=== PATIENT | female | born 1955 | race Caucasian/White ===

== ENCOUNTER → 2016-11-04 | Outpatient (CLI) | payer OTHER ==
[~2016-11-04] MED LIST: ASPIRIN 81M81 MG/TA2 PO; CELEXA40 MG PO; EFFEXOR XR75 MG/CAP PO; FLEXERIL 1010 MG/TAB PO; GLUCOPHAGE500 MG/TAB PO; NORCO 325 MG-51 TAB PO; PLAVIX 75MG TAB75 MG PO; PREDNISONE20 MG PO; PRILOSEC 20MG20 MG PO; PROTONIX 40MG T40 MG PO; SYNTHROID0.1 MG/TAB PO; ZOFRAN ODT4 MG PO
== END ==
LOC: MC.RAD 13:28
DX: Z12.31 Encounter for screening mammogram for malignant neoplasm of breast (principal); D24.2 Benign neoplasm of left breast

== ENCOUNTER 2017-01-06 11:05 | Inpatient (IN) | payer OTHER ==
[~2017-01-06] VITALS: Ht 162.6 cm; Wt 83.7 kg
[~2017-01-06 11:05] MED LIST changes: -CELEXA40 MG PO; -GLUCOPHAGE500 MG/TAB PO; -NORCO 325 MG-51 TAB PO; -PLAVIX 75MG TAB75 MG PO; -PROTONIX 40MG T40 MG PO; -ZOFRAN ODT4 MG PO
[2017-04-04] MEDS ORDERED: PLAVIX 75MG TAB75 MG PO (12:17)
[2017-04-04] MEDS ORDERED: PROTONIX 40MG T40 MG PO (12:18)
[2017-04-04] MEDS ORDERED: GLUCOPHAGE500 MG/TAB PO (12:18)
[2017-04-04] MEDS ORDERED: CELEXA40 MG PO (12:19)
[2017-04-05] VITALS (12 sets, daily range): BP systolic 89–124; BP diastolic 54–71; PULSE 55–85; TEMP 97.9–98.6
[2017-04-06] VITALS (7 sets, daily range): BP systolic 99–143; BP diastolic 45–69; PULSE 48–73; TEMP 97.5–99.2
[2017-04-06 06:57] LABS: HEMATOCRIT 35.2 % (37.0-47.0); HEMOGLOBIN 11.4 g/dl (12.5-16.0)
[2017-04-07 05:39] VITALS: BP 131/62; PULSE 78; TEMP 99.2
[2017-04-07 06:58] LABS: HEMATOCRIT 34.6 % (37.0-47.0); HEMOGLOBIN 11.5 g/dl (12.5-16.0)
[2017-04-07 07:19] VITALS: BP 124/50; PULSE 85; TEMP 98.5
[2017-04-07 11:25] VITALS: BP 147/68; PULSE 79; TEMP 98.1
== END 2017-04-07 17:00 | disposition home or self-care (01) | DRG 470 ==
LOC: JCC 04-05 05:10
PROVIDERS: Orthopaedic Surgery
PROC: 0SRC0J9 Replacement of Right Knee Joint with Synthetic Substitute, Cemented, Open Approach (ICD-10-PCS; principal; 2017-04-05 07:30)
DX: M17.11 Unilateral primary osteoarthritis, right knee (principal); E11.9 Type 2 diabetes mellitus without complications; Z87.891 Personal history of nicotine dependence
CPT/HCPCS: A9284; C1713; C1776; J0690; J1100; J1200; J1885; J2250; J2270; J2274; J2405; J2704; J3010; J7030; J7042

== ENCOUNTER → 2017-03-20 | Outpatient (CLI) | payer OTHER ==
[~2017-03-20] MED LIST changes: +CELEXA40 MG PO; +GLUCOPHAGE500 MG/TAB PO; +NORCO 325 MG-51 TAB PO; +PLAVIX 75MG TAB75 MG PO; +PROTONIX 40MG T40 MG PO; +ZOFRAN ODT4 MG PO
== END ==
LOC: COL.LAB 14:05
DX: Z01.89 Encounter for other specified special examinations (principal)

== ENCOUNTER 2017-05-01 13:24 | Emergency (ER) | payer OTHER ==
[~2017-05-01] VITALS: Ht 162.6 cm; Wt 77.3 kg
[~2017-05-01 13:24] MED LIST changes: -NORCO 325 MG-51 TAB PO; -ZOFRAN ODT4 MG PO
[2017-05-01 13:29] VITALS: BP 132/83; TEMP 98.4
[2017-05-01] MEDS ORDERED: NORCO 325 MG-51 TAB PO (13:34)
[2017-05-01] MEDS ORDERED: ZOFRAN ODT4 MG PO (15:39)
[2017-05-01 15:54] VITALS: PULSE 97
== END 2017-05-01 15:54 | disposition home or self-care (01) ==
LOC: COL.ER 13:24
DX: K22.8 Other specified diseases of esophagus (principal); T38.3X5A Adverse effect of insulin and oral hypoglycemic [antidiabetic] drugs, initial encounter; F32.9 Major depressive disorder, single episode, unspecified; E03.9 Hypothyroidism, unspecified; E11.9 Type 2 diabetes mellitus without complications; Z79.84 Long term (current) use of oral hypoglycemic drugs; Z98.890 Other specified postprocedural states

== ENCOUNTER 2018-03-15 13:54 | Inpatient (IN) | payer BC ==
[2018-03-15] VITALS (265 sets, daily range): BP systolic 105–132; BP diastolic 58–71; PULSE 67; TEMP 97; O2SAT 84–100
[~2018-03-15] VITALS: Ht 162.6 cm; Wt 81.2 kg
[~2018-03-15 13:54] MED LIST changes: +CELEXA 20MG20 MG/TAB PO; -CELEXA40 MG PO; +NORCO 325 MG-51 TAB PO; +SYNTHROID0.088 MG/T PO; -SYNTHROID0.1 MG/TAB PO; +ZOFRAN ODT4 MG PO
[2018-03-15] MEDS ORDERED: ASPIRIN 81M81 MG/TA2 PO (14:07)
[2018-03-15 14:42] LABS: BASO % 0.3 % (0.0-2.0); EOS # 0.1 (0.0-0.7); EOS % 0.6 % (0-4.0); GRAN # 7.9 (1.4-6.5); HEMOGLOBIN 10.2 g/dl (12.5-16.0); LYMPH # 2.1 (1.2-3.4); LYMPH % 18.7 % (20.0-51.0); MEAN CELL VOLUME 86 fl (80.0-100.0); MEAN CORPUSCULAR HEMOGLOBIN 28 pg (27.0-31.0); MEAN CORPUSCULAR HGB CONC 32 g/dl (33.0-37.0); MEAN PLATELET VOLUME 11.3 fl (7.4-10.4); MONO # 0.9 (0.1-0.6); MONO % 7.7 % (1.7-9.3); PLATELET COUNT 234 K/mm3 (130-400); RED BLOOD COUNT 3.68 M/mm3 (4.10-5.30); REDCELL DISTRIBUTION WIDTH-CV 14.4 % (11.5-14.5)
[2018-03-15 14:45] LABS: HEMATOCRIT 31.6 % (37.0-47.0); INR 1.1 (0.8-3.0)
[2018-03-15 14:56] LABS: ALBUMIN 2.8 gm/dL (3.5-5.0); BILIRUBIN,TOTAL 0.2 mg/dL (0.0-1.0); CALCIUM 7.5 mg/dL (8.4-10.2); CREATININE, serum 1.01 mg/dL (0.52-1.25); POTASSIUM 3.5 mmol/L (3.4-5.0); TOTAL PROTEIN 5.1 gm/dL (6.4-8.2)
[2018-03-15 19:31] LABS: HEMOGLOBIN 9.2 g/dl (12.5-16.0)
[2018-03-15 19:32] LABS: HEMATOCRIT 28.7 % (37.0-47.0)
[2018-03-15 20:40] LABS: COLLECTION METHOD CLEAN CATCH
[2018-03-15 20:46] LABS: MUCOUS Present /lpf; PH 6 (5-8); SQUAMOUS EPITHELIAL None Seen /hpf; URINE APPEARANCE Clear; URINE BACTERIA None Seen /hpf; URINE BILIRUBIN Negative (NEGATIVE); URINE BLOOD 2+ (NEGATIVE); URINE COLOR Straw; URINE GLUCOSE Negative (NEGATIVE); URINE KETONE Negative (NEGATIVE); URINE LEUKOCYTE ESTERASE Negative (NEGATIVE); URINE NITRATE Negative (NEGATIVE); URINE PROTEIN(semi-quant) Negative (NEGATIVE); URINE RBC 0-2 /hpf; URINE UROBILINOGEN Negative (NEGATIVE)
[2018-03-15 23:18] LABS: HEMATOCRIT 24.4 % (37.0-47.0); HEMOGLOBIN 7.9 g/dl (12.5-16.0)
[2018-03-16] VITALS (231 sets, daily range): BP systolic 94–121; BP diastolic 51–76; PULSE 62–87; TEMP 97–98.8; O2SAT 84–100
[2018-03-16 03:30] LABS: BASO % 0.3 % (0.0-2.0); EOS # 0.2 (0.0-0.7); EOS % 1.9 % (0-4.0); GRAN # 6.5 (1.4-6.5); GRAN % 63.7 % (42.2-75.2); LYMPH # 2.6 (1.2-3.4); MEAN CELL VOLUME 86 fl (80.0-100.0); MEAN CORPUSCULAR HGB CONC 32 g/dl (33.0-37.0); MEAN PLATELET VOLUME 11.4 fl (7.4-10.4); MONO # 0.8 (0.1-0.6); MONO % 7.5 % (1.7-9.3); PLATELET COUNT 167 K/mm3 (130-400); RED BLOOD COUNT 2.82 M/mm3 (4.10-5.30); REDCELL DISTRIBUTION WIDTH-CV 14.6 % (11.5-14.5)
[2018-03-16 03:31] LABS: HEMATOCRIT 24.2 % (37.0-47.0); HEMOGLOBIN 7.7 g/dl (12.5-16.0); MEAN CORPUSCULAR HEMOGLOBIN 27 pg (27.0-31.0)
[2018-03-16 03:32] LABS: HEMATOCRIT 24.2 % (37.0-47.0); HEMOGLOBIN 7.7 g/dl (12.5-16.0)
[2018-03-16 03:40] LABS: CALCIUM 7.1 mg/dL (8.4-10.2); CREATININE, serum 0.76 mg/dL (0.52-1.25); POTASSIUM 3.7 mmol/L (3.4-5.0)
[2018-03-16 10:43] LABS: HEMOGLOBIN 9.3 g/dl (12.5-16.0)
[2018-03-16 14:43] LABS: HEMATOCRIT 28.1 % (37.0-47.0)
[2018-03-16 18:43] LABS: HEMATOCRIT 28.1 % (37.0-47.0)
[2018-03-17 00:02] LABS: HEMATOCRIT 25.7 % (37.0-47.0); HEMOGLOBIN 8.4 g/dl (12.5-16.0)
[2018-03-17 00:07] VITALS: BP 91/45; PULSE 74; TEMP 98.6
[2018-03-17 03:19] LABS: BASO % 0.4 % (0.0-2.0); EOS # 0.2 (0.0-0.7); EOS % 2.8 % (0-4.0); GRAN # 5.5 (1.4-6.5); GRAN % 64.7 % (42.2-75.2); LYMPH # 2.1 (1.2-3.4); LYMPH % 24.2 % (20.0-51.0); MEAN CELL VOLUME 85 fl (80.0-100.0); MEAN CORPUSCULAR HGB CONC 33 g/dl (33.0-37.0); MEAN PLATELET VOLUME 11.1 fl (7.4-10.4); MONO # 0.6 (0.1-0.6); MONO % 7.3 % (1.7-9.3); PLATELET COUNT 190 K/mm3 (130-400); RED BLOOD COUNT 3.11 M/mm3 (4.10-5.30); REDCELL DISTRIBUTION WIDTH-CV 14.6 % (11.5-14.5)
[2018-03-17 03:37] LABS: HEMATOCRIT 26.5 % (37.0-47.0); HEMOGLOBIN 8.6 g/dl (12.5-16.0); MEAN CORPUSCULAR HEMOGLOBIN 28 pg (27.0-31.0)
[2018-03-17 03:39] LABS: CALCIUM 8.2 mg/dL (8.4-10.2); CREATININE, serum 0.8 mg/dL (0.52-1.25); POTASSIUM 3.9 mmol/L (3.4-5.0)
[2018-03-17 04:21] VITALS: BP 100/49; PULSE 74; TEMP 98.6
[2018-03-17 07:32] VITALS: BP 111/53; PULSE 71; TEMP 98.4
[2018-03-17] MEDS ORDERED: FERROUS GL325 MG/TAB PO (11:31)
== END 2018-03-17 12:52 | disposition home or self-care (01) | DRG 378 ==
LOC: COL.ER 13:54 → ICU 17:38 → MEDICAL 17:38
PROVIDERS: Emergency Medicine; Internal Medicine; Internal Medicine Gastroenterology; Nurse Practitioner Family
PROC: 0DJD8ZZ Inspection of Lower Intestinal Tract, Via Natural or Artificial Opening Endoscopic (ICD-10-PCS; principal; 2018-03-15 16:30)
PROC: 0DJ08ZZ Inspection of Upper Intestinal Tract, Via Natural or Artificial Opening Endoscopic (ICD-10-PCS; 2018-03-15 16:30)
DX: K57.31 Diverticulosis of large intestine without perforation or abscess with bleeding (principal); D62 Acute posthemorrhagic anemia; E11.9 Type 2 diabetes mellitus without complications; Z87.891 Personal history of nicotine dependence
CPT/HCPCS: 99223-AI; 99233-AI; 99239; A9560; C9113; J2250; J3010; J7030; J7120

== ENCOUNTER → 2018-03-27 | Outpatient (CLI) | payer BC ==
[~2018-03-27] MED LIST changes: +FERROUS GL325 MG/TAB PO
== END ==
LOC: MC.RAD 02-13 14:40
DX: Z12.31 Encounter for screening mammogram for malignant neoplasm of breast (principal)

== ENCOUNTER → 2019-04-29 | Outpatient (CLI) | payer BC | LOC: MC.RAD 11:40 | DX: Z12.31 Encounter for screening mammogram for malignant neoplasm of breast (principal) ==

== ENCOUNTER → 2020-05-22 | Outpatient (CLI) | payer BC | LOC: MC.RAD 13:39 | DX: Z12.31 Encounter for screening mammogram for malignant neoplasm of breast (principal) ==

== ENCOUNTER → 2021-06-01 | Outpatient (CLI) | payer BC | LOC: MC.RAD 11:37 | DX: Z12.31 Encounter for screening mammogram for malignant neoplasm of breast (principal) ==

== ENCOUNTER → 2021-08-13 | Outpatient (CLI) | payer MEDICARE, OTHER | LOC: COL.RAD 08:36 | DX: K44.9 Diaphragmatic hernia without obstruction or gangrene (principal); T17.320A Food in larynx causing asphyxiation, initial encounter; K21.9 Gastro-esophageal reflux disease without esophagitis ==

== ENCOUNTER 2021-09-06 12:53 | Outpatient (RCR) | payer MEDICARE | END 2021-10-29 | disposition home or self-care (01) | LOC: WSST | DX: K22.9 Disease of esophagus, unspecified (principal) ==

== ENCOUNTER → 2021-09-14 | Outpatient (CLI) | payer MEDICARE | LOC: COL.RAD 09-09 15:30 | DX: K22.9 Disease of esophagus, unspecified (principal) ==

== ENCOUNTER → 2022-06-09 | Outpatient (CLI) | payer MEDICARE | LOC: MC.RAD 14:25 | DX: Z12.31 Encounter for screening mammogram for malignant neoplasm of breast (principal); N64.89 Other specified disorders of breast ==

== ENCOUNTER → 2022-06-14 | Outpatient (CLI) | payer MEDICARE | LOC: MC.RAD 12:13 | DX: N64.89 Other specified disorders of breast (principal); Z98.890 Other specified postprocedural states ==

== ENCOUNTER → 2022-06-21 | Outpatient (CLI) | payer MEDICARE | LOC: MC.RAD 07:47 | DX: N63.15 Unspecified lump in the right breast, overlapping quadrants (principal) ==

== ENCOUNTER → 2022-06-22 | Outpatient (CLI) | payer MEDICARE | LOC: MHCPAIN 12:39 | DX: M47.892 Other spondylosis, cervical region (principal); M54.12 Radiculopathy, cervical region | CPT/HCPCS: G0463 ==

== ENCOUNTER 2022-06-28 15:00 | Outpatient (RCR) | payer MEDICARE | END 2022-06-29 | disposition home or self-care (01) | LOC: WSPT | DX: M54.12 Radiculopathy, cervical region (principal) ==

== ENCOUNTER 2022-08-18 15:45 | Outpatient (RCR) | payer MEDICARE | END 2022-08-29 | disposition home or self-care (01) | LOC: WSPT | DX: M54.12 Radiculopathy, cervical region (principal) ==